=== PATIENT | male | born 1945 | race Caucasian/White ===

== ENCOUNTER 2017-08-12 10:07 | Emergency (ER) | payer OTHER, MEDICARE ==
[~2017-08-12] VITALS: Ht 170.2 cm; Wt 79.0 kg
[~2017-08-12 10:07] MED LIST: AMOXICILLIN875 MG PO; ASPIRIN81 M1 PO; CARVEDILOL25 MG PO; Coumadin,Jantoven PO; DIGOXIN250 MCG PO; FLOMAX0.4 MG PO; FOSAMAX70 MG PO; GLUCOVANCE 21 TABLET PO; LASIX20 MG PO; LISINOPRIL5 MG PO; LOPID600 MG PO; NORCO 5/3251 TABLET PO; Vicodin,Norco 5/325 PO; WARFARIN SODIUM5 MG PO
[2017-08-12 11:20] LABS: HEMATOCRIT 40.1 % (38.0-50.0); HEMOGLOBIN 13.5 G/DL (12.5-16.6); MCH 30.6 PG (29.0-34.0); MCHC 33.7 G/DL (30.0-36.0); MCV 90.9 FL (86-99); PLATELET COUNT 136 K/uL (156-360); RBC DIS.WIDTH-CV 12.8 % (11.8-14.6); RBC DIS.WIDTH-SD 42.5 % (39-53); RED BLOOD COUNT 4.41 M/uL (4.00-5.50); WHITE BLOOD COUNT 5.1 K/uL (4.1-10.2)
[2017-08-12 11:25] LABS: INTER. NORMALIZED RATIO 1.3
[2017-08-12 11:28] LABS: PTT 28.6 SEC (25-37)
[2017-08-12 11:28] LABS: ALBUMIN 3.7 g/dL (3.2-4.8); CHLORIDE 102 mEq/L (99-109); POTASSIUM 4.7 mEq/L (3.7-5.4); SODIUM 134 mEq/L (136-147)
[2017-08-12 11:30] LABS: GLUCOSE 317 mg/dL (70-99)
[2017-08-12 11:31] LABS: TOTAL PROTEIN 7.1 g/dL (6.4-8.3)
[2017-08-12 11:32] LABS: TOTAL BILIRUBIN 1.1 mg/dL (0.0-1.0)
[2017-08-12 11:34] LABS: ALKALINE PHOSPHATASE 62 IU/L (3-129); CREATININE 0.8 mg/dL (0.6-1.3); GFR ESTIMATE (CALCULATED) > 59 mL/min/ (58.99-99999)
[2017-08-12 11:35] LABS: UREA NITROGEN (BUN) 17 mg/dL (9-23)
[2017-08-12 11:36] LABS: AST (GOT) 59 IU/L (2-34)
[2017-08-12 11:37] LABS: ALT (GPT) 49 IU/L (3-49)
[2017-08-12 11:51] LABS: APPEARANCE CLOUDY ((CLEAR)); BILIRUBIN NEGATIVE; BLOOD MODERATE; COLOR AMBER ((YELLOW)); GLUCOSE (STRIP) >=500; KETONES 5; LEUKOCYTES NEGATIVE; NITRITE NEGATIVE; PROTEIN (STRIP) 100; SPECIFIC GRAVITY 1.029 (1.000-1.030); UROBILINOGEN 0.2 MG/DL (0.2-1.0)
[2017-08-12 12:16] LABS: RED BLOOD CELLS TNTC /HPF (0-5)
[2017-08-12 12:17] LABS: BACTERIA 2+ /HPF; EPITHELIAL CELLS NONE SEEN /HPF; MUCUS NONE SEEN /LPF; UCUL ADDED? YES; WHITE BLOOD CELLS 0-5 /HPF (0-5)
[2017-08-12] MEDS ORDERED: CIPRO500 MG PO (16:26)
[2017-08-12 16:40] VITALS: BP 153/88
== END 2017-08-12 16:58 | disposition home or self-care (01) ==
LOC: EME 10:07 → RME 10:07
PROVIDERS: Nurse Practitioner Family
DX: N39.0 Urinary tract infection, site not specified (principal); R31.0 Gross hematuria; E11.65 Type 2 diabetes mellitus with hyperglycemia; I10 Essential (primary) hypertension; E78.5 Hyperlipidemia, unspecified; M85.80 Other specified disorders of bone density and structure, unspecified site; Z90.49 Acquired absence of other specified parts of digestive tract; Z79.01 Long term (current) use of anticoagulants; Z79.84 Long term (current) use of oral hypoglycemic drugs; Z79.82 Long term (current) use of aspirin
CPT/HCPCS: 74174; 80053; 81003; 85027; 85610; 85730; 86850; 86900; 86901; 87077; 87086; 87186; 99281; 99285; J0696; J7030